=== PATIENT | male | born 1985 | race Caucasian/White ===

== ENCOUNTER 2018-04-23 18:59 | Emergency (ER) | payer SELFPAY ==
[~2018-04-23] VITALS: Ht 177.8 cm; Wt 70.0 kg
[2018-04-23 19:04] VITALS: Ht 177.8 cm; Wt 70.0 kg
== END 2018-04-23 23:52 | disposition left against medical advice (07) ==
LOC: FTE 18:59
DX: Z53.21 Procedure and treatment not carried out due to patient leaving prior to being seen by health care provider (principal)